=== PATIENT | male | born 1975 | race African-American/Black ===

== ENCOUNTER 2023-03-26 12:04 | Emergency (ER) | payer SELFPAY ==
--- NOTE | 2023-03-26 12:34 | ER ---
Nurse's Notes [facility] Name: Ed Petersen Age: 48 yrs Sex: Male : 1975 Arrival Date: 03/26/2023 Time: 12:04 Bed IW2 Private MD: Diagnosis: Pain in thoracic spine;Radiculopathy, cervicothoracic region Presentation: 03/26 12:22 Chief complaint: Patient states: Right should/arm pain for about a week, no known nj1 injury, states he had gone to [facility], given muscle relaxant, pain has moved down to upper arm, fluctuates in severity. Coronavirus screen: Vaccine status: Patient reports being unvaccinated. Ebola Screen: Patient denies travel to an Ebola-affected area in the 21 days before illness onset. Initial Sepsis Screen: Does the patient meet any 2 criteria? No. Patient's initial sepsis screen is negative. Does the patient have a suspected source of infection? No. Patient's initial sepsis screen is negative. Risk Assessment: Do you want to hurt yourself or someone else? Patient reports no desire to harm self or others. Onset of symptoms was March 2023. 12:22 Method Of Arrival: Ambulatory [facility] 12:22 Acuity: JAMES 3 nj1 Triage Assessment: 12:30 General: Appears in no apparent distress. uncomfortable, Behavior is calm, cooperative, nj1 appropriate for age. Pain: Complains of pain in anterior aspect of right shoulder, right bicep and right posterior upper chest wall. 12:30 Neuro: No deficits noted. Cardiovascular: No deficits noted. Respiratory: No deficits nj1 noted. Musculoskeletal: Reports pain in anterior aspect of right shoulder and right bicep since 1 week. Historical: - Allergies: 12:30 No Known Allergies; nj1 - PMHx: 12:30 None; nj1 - PSHx: 12:30 None; nj1 - Immunization history:: Client reports receiving the 2nd dose of the Covid vaccine. - Social history:: Smoking status: Patient denies any tobacco usage or history of. Vital Signs: 12:22 BP 124 / 88; Pulse 72; Resp 18; Temp 98.1(TE); Pulse Ox 100% on R/A; Weight 90.72 kg; nj1 Height 5 ft. 10 in. ; Pain 9/10; 12:22 Body Mass Index 28.70 (90.72 kg, 177.8 cm) nv1 12:22 Pain Scale: Adult [facility] ED Course: 12:10 Patient arrived in ED. mg5 12:13 [facility] Joe F[facility] jh7 12:13 Angel Garcia MD is Attending Physician. 7 12:30 Triage completed. nj1 12:30 Arm band placed on left wrist. nv1 12:45 Provided Education on: Discharge instructions. nj1 12:45 Patient did not have IV access during this emergency room visit. nj1 Administered Medications: 12:39 Not Given (Patient Refused): dexamethasone 10 mg IM once mb9 12:41 Drug: traMADol PO 50 mg PO once Route: PO; mb9 12:41 Drug: Dexamethasone IM 10 mg IM once Route: IM; Site: left gluteus; mb9 Outcome: 12:34 Discharge ordered by MD. [facility] 12:45 Discharged to home ambulatory, nv1 12:45 Condition: stable 12:45 Discharge instructions given to patient, Instructed on discharge instructions, follow up and referral plans. medication usage, Demonstrated understanding of instructions, follow-up care, medications, Prescriptions given X 3, 12:50 Patient left the ED. [facility] Signatures: Juana Joe FNP [employer] 7 Neelam Mchugh RN RN mb9 Kelsey Haddad RN RN flory1 Abeba Handley mg5 Corrections: (The following items were deleted from the chart) 13:10 13:08 Patient left the ED. nj1 [facility]
--- NOTE | 2023-03-26 12:34 | EDPHYS ---
Physician Documentation [facility] Name: Ed Petersen Age: 48 yrs Sex: Male : 1975 Arrival Date: 03/26/2023 Time: 12:04 Bed IW2 Private MD: ED Physician Angel Garcia HPI: 03/26 12:30 This 48 yrs old Black Male presents to ER via Ambulatory with complaints of Shoulder jh7 Pain - Arm Pain. 12:30 The patient or guardian complains of pain, that is acute. right posterior jh7 shoulder/scapula. Patient seen 1 week ago at [facility] for right shoulder/back pain. Reports that the pain is reproduced with movement of the shoulder and neck. Reports that they gave him Flexeril and that the medication has not been working.. Historical: - Allergies: 12:30 No Known Allergies; nj1 - PMHx: 12:30 None; nj1 - PSHx: 12:30 None; nj1 - Immunization history:: Client reports receiving the 2nd dose of the Covid vaccine. - Social history:: Smoking status: Patient denies any tobacco usage or history of. ROS: 12:30 Constitutional: Negative for fever, chills, and weight loss, Eyes: Negative for injury, jh7 pain, redness, and discharge, 12:30 Neck: Negative for injury, pain, and swelling, Cardiovascular: Negative for chest pain, palpitations, and edema, Respiratory: Negative for shortness of breath, cough, wheezing, and pleuritic chest pain, Back: Negative for injury and pain, Skin: Negative for injury, rash, and discoloration, Neuro: Negative for headache, weakness, numbness, tingling, and seizure, 12:30 MS/extremity: Positive for pain, tenderness, 12:30 All other systems are negative, Exam: 12:30 Constitutional: This is a well developed, well nourished patient who is awake, alert, jh7 and in no acute distress. Head/Face: Normocephalic, atraumatic. Cardiovascular: Regular rate and rhythm with a normal S1 and S2. No gallops, murmurs, or rubs. Normal PMI, no JVD. No pulse deficits. Respiratory: Lungs have equal breath sounds bilaterally, clear to auscultation and percussion. No rales, rhonchi or wheezes noted. No increased work of breathing, no retractions or nasal flaring. Abdomen/GI: Soft, non-tender, with normal bowel sounds. No distension or tympany. No guarding or rebound. No evidence of tenderness throughout. Back: No spinal tenderness. No costovertebral tenderness. Full range of motion. Skin: Warm, dry with normal turgor. Normal color with no rashes, no lesions, and no evidence of cellulitis. Neuro: Awake and alert, GCS 15, oriented to person, place, time, and situation. Motor strength 5/5 in all extremities. Sensory grossly intact. Normal gait. 12:30 Musculoskeletal/extremity: ROM: limited active range of motion due to pain, in the right shoulder, Circulation is intact in all extremities. Sensation intact. Right posterior shoulder/scapula tender to palpation. Pain exacerbated with abduction of the shoulder beyond 90 degrees and left lateral rotation of the neck.. Vital Signs: 12:22 BP 124 / 88; Pulse 72; Resp 18; Temp 98.1(TE); Pulse Ox 100% on R/A; Weight 90.72 kg; nj1 Height 5 ft. 10 in. ; Pain 9/10; 12:22 Body Mass Index 28.70 (90.72 kg, 177.8 cm) [facility] 12:22 Pain Scale: Adult nj1 MDM: 12:13 Patient medically screened. [facility] 12:45 Differential diagnosis: DJD, tendonitis. Data reviewed: vital signs, nurses notes. I [facility] considered the following discharge prescriptions or medication management in the emergency department Medications were administered in the Emergency Department. See MAR. Counseling: I had a detailed discussion with the patient and/or guardian regarding the historical points, exam findings, and any diagnostic results supporting the discharge/admit diagnosis, to return to the emergency department if symptoms worsen or persist or if there are any questions or concerns that arise at home. Response to treatment: the patient's symptoms have mildly improved after treatment. Administered Medications: 12:39 Not Given (Patient Refused): dexamethasone 10 mg IM once mb9 12:41 Drug: traMADol PO 50 mg PO once Route: PO; mb9 12:41 Drug: Dexamethasone IM 10 mg IM once Route: IM; Site: left gluteus; mb9 Disposition: 15:57 Co-signature as Attending Physician, Agnel Garcia MD I reviewed the patient's care rt provided by the Advanced Practice Provider and agree with the diagnosis and treatment plan. Disposition Summary: 03/26/23 12:34 Discharge Ordered Notes: Location: Home [facility] Problem: new [facility] Symptoms: are unchanged [facility] Condition: Stable [facility] Diagnosis - Pain in thoracic spine 7 - Radiculopathy, cervicothoracic region [facility] Followup: [facility] - With: Private Physician - When: 2 - 3 days - Reason: Recheck today's complaints Discharge Instructions: - Discharge Summary Sheet [facility] - Chronic Back Pain [facility] - Cervical Radiculopathy [facility] - Back Exercises [facility] Forms: - Medication Reconciliation Form [facility] - Thank You Letter [facility] - Prescription Opioid Use [facility] - Patient Portal Instructions [facility] - Leadership Thank You Letter [facility] Prescriptions: - Naprosyn 500 mg Oral Tablet - take 1 tablet ORAL route 2 times per day take with food; 30 tablet; Refills: 0, [facility] Product Selection Permitted - Zanaflex 4 mg Oral Tablet - take 1 tablet ORAL route every 8 hours As needed; 20 tablet; Refills: 0, [facility] Product Selection Permitted - Tramadol 50 mg Oral Tablet - take 1 tablet ORAL route every 8 hours as needed; 12 tablet; Refills: 0, [facility] Product Selection Permitted Signatures: Juana Joe FNP [employer] [facility] Neelam Mchugh, RN RN mb9 Angel Garcia MD MD rt Kelsey Haddad RN RN nj1
[2023-03-26] MEDS ORDERED: dexAMETHasone 10 MG/ML VIAL ONE (12:52)
[2023-03-26] MEDS ORDERED: TRAMADOL HCL 50 MG TAB ONE (12:52)
[2023-03-26 13:13] VITALS: BP 124/88; TEMP 98.1; O2SAT 100
== END 2023-03-26 13:08 | disposition home or self-care (01) ==
LOC: ER 12:04
DX: M54.13 Radiculopathy, cervicothoracic region (principal)
CPT/HCPCS: 96372; 99284; J1100